=== PATIENT | female | born 1985 | race Hispanic/Latino ===

== ENCOUNTER 2017-11-04 03:02 | Inpatient (IN) | payer OTHER ==
[~2017-11-04] VITALS: Ht 170.2 cm; Wt 175.3 kg
[~2017-11-04 03:02] MED LIST: ABILIFY2 MG PO; AMLODIPINE BESY10 M1 PO; FETZIMA40 M1 PO; HYDROCHLOROTHIA25 M1 PO; KLONOPIN0.5 M1 PO; NEURONTIN300 M1 PO; PROAIR HFA8.5 GM INH; WELLBUTRIN SR150 M1 PO
--- NOTE | 2017-11-04 11:07 | Admission Core Measures ---
Acute Coronary Syndrome (CM) ACS Core Measures Acute Coronary Syndrome Diagnosis No Congestive Heart Failure (NEW) CHF Core Measures Congestive Heart Failure Diagnosis No Cerebrovascular Accident CVA Core Measures CVA/TIA Diagnosis No Venous Thromboembolism VTE Core Chery (View Protocol) VTE Risk Factors Surgery No Mechanical VTE Prophylaxis d/t N/A MechProphylax Ordered No VTE Pharm Prophylaxis d/t NA PharmProphylax ordered Problem List As ranked by this Provider includes Assessment & Plan 1. Morbid obesity 2. Asthma 3. Sleep apnea 4. Depressed 5. Hypertension 6. S/P laparoscopic sleeve gastrectomy HOME MEDS Home Med List Albuterol Sulfate (Proair Hfa) 90 MCG HFA.AER.AD 2 PUF INH Q4-6 PRN PRN ASTHMA (Reported) Amlodipine Besylate 10 MG TABLET 1 TAB PO DAILY BP (Reported) Aripiprazole (Abilify) 2 MG TABLET 1 TAB PO DAILY DEPRESSION (Reported) Bupropion HCl (Wellbutrin Sr) 150 MG TABLET.ER 1 TAB PO DAILY DEPRESSION ( Reported) Clonazepam (Klonopin) 0.5 MG TABLET 1 TAB PO DAILY DEPRESSION (Reported) Gabapentin (Neurontin) 300 MG CAPSULE 1 CAP PO DAILY DEPRESSION (Reported) Hydrochlorothiazide 25 MG TABLET 1 TAB PO DAILY FLUID PILL (Reported) Levomilnacipran Hydrochloride (Fetzima) 40 MG CAP.SA.24H 2 CAP PO DAILY DEPRESSION (Reported)
--- NOTE | 2017-11-04 11:08 | Surg Short-stay <48hrs Dis Sum ---
Visit Information Visit Dates Admission Date: 11/04/17 Discharge Date: 11/05/17 Surgical Short Stay DC Summary Admission Diagnosis: Morbid obesity, Sleep apnea, hypertension Final Diagnosis: Morbid obesity, Sleep apnea, hypertension Procedure(s): Surgery Date: 11/04/17 Name of Procedure: Robotic assisted Laparoscopic Sleeve Gastrectomy Summary/Significant Findings: Electively scheduled robotic assisted laparoscopic sleeve gastrectomy on 11/04/17 for history of morbid obesity, sleep apnea, hypertension. Started on stage 1 diet post-operatively. Upper gi study POD#1 to rule out leak and obstruction. Blood pressure monitored while hydrocholorthiazide was stopped. Lovenox teaching done prior to admission, and prescription filled pre-operatively according to her pre-operative risk assessment. Discharged to home once tolerating stage 1 bariatric diet. Condition at Discharge: stable Discharge Disposition: home or self care Discharge instructions provided to patient/family: Yes Post discharge follow-up plan: one week follow up with continue lovenox injections as directed
--- NOTE | 2017-11-04 11:11 | Operative Report ---
Operative/Inv Procedure Report Surgery Date: 11/04/17 Name of Procedure: Robotic assisted Laparoscopic Sleeve Gastrectomy Pre-Operative Diagnosis: Morbid obesity, Sleep apnea, hypertension Post-Operative Diagnosis: same Estimated Blood Loss: less than 50ml Surgeon/Towboat Operator: Jose Elias TERRELL,Zane Valentine PAC Anesthesia: general endotracheal tube, block IV Fluids: LR Implants: none Urine Output: na Drains: none Specimens: portion of stomach Complications: none Condition: stable Operative Indication: see admission h and p Operative/Procedure Note Note: After informed consent and proper identification the patient was taken the operating room placed on the operating table in supine position. Venodyne stockings were applied. She underwent a general endotracheal anesthetic. Anesthesia performed a ELENA Block. We entered the abdominal cavity using a 5 mm Stortz laparoscope through an 8 mm robotic the support through an incision just a centimeter above and lateral to the midline umbilicus. Insufflated the abdomen 14 mm associated pressure and had excellent visualization. We placed 2 ports on the left side no horizontal fashion most laterally an 8 mm robotic port in between the 2 Previous Placed ports a 12 mm trocar. On the right side to the right of the umbilicus replaced a 8 mm trocar. We placed a Too liver retractor in the upper midline to retract the left lobe of the liver. Next we docked the robot placing arm to to the trocar just to the left of the midline and placing the camera in targeting the robot once targeted we attached arms 1 3 and 4 and on one we placed a fenestrated bipolar forceps in arm 3 a vessel sealer in arm for a checkup retractor. With anesthesia to decompress his stomach with an orogastric tube and then remove it we took down the vascular attachments along the greater curvature the stomach 6 cm from the pylorus opposite the angularis all the way up to the angle of Hiss and reflected the fundus of the stomach off the left edison. We could clearly see the splenic vessels pancreas and spleen and were careful not to injure them we did not see a significant hiatal hernia. We then had anesthesia place a 40 [place]ese bougie and using this as a guide we used the robotic stapler 45 mm cartridges firing 3 green cartridges with seam guard followed by 3 blue cartridges with seam guard to completely transect the remnant stomach from the newly created sleeve were placed the remnant stomach and a 12 [employer] catch bag and pulled out through the 12 mm port removed the liver retractor the bougie all sponge and instruments. We did not place any sponges or needles within the abdominal cavity. The patient tolerated the procedure without complications were closed the skin incisions with 4-0 Monocryl subcuticular stitches and glue and she was extubated and taken to recovery room in stable condition Findings: fatty liver, no hiatal hernia Discharge Disposition: PACU
--- NOTE | 2017-11-04 11:13 | Patient Discharge Instructions ---
Discharge Instructions General Discharge Information You were seen/treated for: Morbid obesity, Sleep apnea, hypertension You had these procedures: Surgery Date: 11/04/17 Name of Procedure: Robotic assisted Laparoscopic Sleeve Gastrectomy Watch for these problems: fever>101.3, increased pain, redness/swelling/drainage, shortness of breath, chest pains, dizziness No bath, but you may shower: Yes Other wound care: skin glue covers and protects incisions. ok to shower. keep incisions clean & dry. Diet Continue normal diet: No Recommended Diet: Bariatric Additional DIET Information: weekly bariatric stage diet advancement as tolerated, as directed Activity Full Activity/No Limits: No Activity Self Limited: Yes Pounds, do NOT lift more than: 10 Other activity limits: no heavy lifting. no strenuous activity. Acute Coronary Syndrome Inclusion Criteria At DC or during hospital stay patient has or had the following: ACS DIAGNOSIS No Discharge Core Measures Meds if any: Prescribed or Continued at Discharge Meds if any: NOT Prescribed or Continued at Discharge Congestive Heart Failure Inclusion Criteria At DC or during hospital stay patient has or had the following: CHF DIAGNOSIS No Discharge Core Measures Meds if any: Prescribed or Continued at Discharge Meds if any: NOT Prescribed or Continued at Discharge Cerebrovascular accident Inclusion Criteria At DC or during hospital stay patient has or had the following: CVA/TIA Diagnosis No Discharge Core Measures Meds if any: Prescribed or Continued at Discharge Meds if any: NOT Prescribed or Continued at Discharge Venous thromboembolism Inclusion Criteria VTE Diagnosis No VTE Type NONE VTE Confirmed by (Test) NONE Discharge Core Measures - Per Current guidelines, there needs to be overlap - treatment for the first 5 days of Warfarin therapy. - If discharged on Warfarin prior to 5 days of - overlap therapy, the patient will need to be - assessed for post discharge needs including - *Post discharge parental anticoagulation - *Warfarin and/or parental anticoagulation education - *Follow up date to check INR post discharge At least 5 days overlap therapy as Inpatient No Meds if any: Prescribed or Continued at Discharge Note: Overlap Therapy is Warfarin and Anticoagulant Meds if any: NOT Prescribed or Continued at Discharge
[2017-11-04] MEDS ORDERED: HYCET 7.5 MG-3473 ML PO (11:19)
[2017-11-04] MEDS ORDERED: PROTONIX40 M3 PO (11:19)
[2017-11-04] MEDS ORDERED: LOVENOX40 MG/0.1 SC (11:19)
[2017-11-04 13:52] VITALS: BP 140/88
--- NOTE | 2017-11-04 14:49 | PN- Student ---
Subjective Subjective: Pt is complaining of 6/10 abdominal pain at this time, as well as some nausea. Reports having been nauseous for about an hour but denies any episodes of vomitus. Tolerated some of her bariatric stage 1 diet. Has not yet ambulated. Denies passing flatus or using the bathroom yet. Denies any CP, SOB, difficulty breathing, PARRY or dizziness. Objective Objective: Vitals:See EMR General: Middle aged, obese, woman, lying in bed, appears tired, NAD. Cardio: Regular rate and rhythm. S1 and S2. No murmurs rubs or gallops. Pulm: Clear breath sounds auscultated with no wheezes rhonchi or rales. Abdomen: Soft, obese, non-distended. Normoactive bowel sounds. Incisions intact. Midly tender to palpation throughout. Extremities: Calves soft and non-tender bilaterally. Results Results: Laboratory Tests 11/04/17 0632: Urine Test NEGATIVE Assessment/Plan Assessment: 32 year old F POD#0 s/p robotic assisted sleeve gastrectomy. PMH includes morbid obestity, HTN, sleep apnea, asthma, and depression. Vital signs stable and post- operative pain is being managed. Pt due to void. Plan: Continue with pain management control. Zofran as needed for nausea. Protonix for GI ppx. Simethicone for gas pain. Complete remaining doses of Cefazolin. Possible UGI in the morning if the patient is still complaining of nausea. Bariatric Stage 1 diet today. NPO after midnight in case of the need for UGI in the am. Pt still due to void. Follow up on am labs. Hep SQ for DVT ppx. Lovenox teaching for pt to be d/c home on lovenox. Continue home medications and hold HCTZ. Encourage ambulation and incentive spirometry use. Discuss w. Dr. Moctezuma and surgical PAs.
[2017-11-04 18:11] VITALS: BP 167/104
[2017-11-04 18:36] VITALS: BP 158/94
[2017-11-04 22:51] VITALS: BP 144/74
[2017-11-05 06:51] VITALS: BP 151/96
--- NOTE | 2017-11-05 07:00 | PN- Student ---
Laura Bradley 11/05/17 0652: Subjective Subjective: Pt feeling better since yesterday. Nausea has improved and pain has lessened. She denies any episodes of vomitus. Voided without difficulty. Still has not ambulated further than the bathroom. Tolerated some of her stage 1 bariatric diet last night but did not have much of an appetite. Denies any CP, SOB, difficulty breathing, PARRY or dizziness. Objective Objective: Vitals: See EMR General: Middle aged female, sitting up in bed, appears comfortable, NAD. Exam limited due to body habitus. Cardio: Regular rate and rhythm. No murmurs, rubs or gallops. Pulm: Clear breath sounds with no wheezes, rhonchi or rales that were appreciable. Abdomen: Incisions clean and intact with mild erythema. No excessive warmth or drainage noted around incisions. Abdomen is soft, round and non-distended. Faint bowel sounds heard. Mildly tender to palpation throughout. Extremities: Claves are soft and non-tender bilaterally. Results Results: Laboratory Tests 11/05/17 0640: Sodium Pending, Potassium Pending, Chloride Pending, Carbon Dioxide Pending, Anion Gap Pending, BUN Pending, Creatinine Pending, BUN/Creatinine Ratio Pending , Glucose Pending, Magnesium Pending, CBC w Diff Pending, WBC Pending, RBC Pending, Hgb Pending, Hct Pending, MCV Pending, MCH Pending, MCHC Pending, RDW Pending, Plt Count Pending, MPV Pending 11/04/17 0632: Urine Test NEGATIVE Assessment/Plan Assessment: 32 year old F POD#1 s/p robotic sleeve gastrectomy with PMH including morbid obestity, HTN, DON, ashthma, and depression. Vital signs are stable and pt is afebrile. Nausea has resolved and pt is doing well. Plan: Continue with pain management control. Zofran as needed for nausea. Protonix for GI ppx. Simethicone for gas pain. Antibiotic course has been completed. Pt still to be NPO and will discuss need for UGI this morning. IVF running. May resume Bariatric Stage 1 diet after UGI if it is performed. Follow up on am labs. Hep SQ for DVT ppx. Lovenox teaching for pt to be d/c home on lovenox. Continue home medications and hold HCTZ. Encourage ambulation and incentive spirometry use. Discuss w. Dr. Moctezuma and surgical PAs. Richard Mark 11/05/17 0736: Resident Review Statement Resident Statement: examined this patient, amended to note Other Findings: Agree with above, patient looks mildly uncomfortable, still with mild nauseous, did not take much in yesterday by mouth and has been n.p.o. since midnight. Has only gotten out of bed to walk a few steps to the bathroom once since surgery. Will proceed with upper GI this morning, n.p.o. until results of upper GI study, encourage ambulation, potential discharge this afternoon versus tomorrow, follow a.m. labs
[2017-11-05 08:33] LABS: ABSOLUTE BASOPHIL COUNT 0 /CUMM (0.0-0.2); ABSOLUTE EOSINOPHIL COUNT 0 /CUMM (0.0-0.7); ABSOLUTE GRANULOCYTE CT 10.6 /CUMM (1.4-6.5); ABSOLUTE LYMPH COUNT 1.3 /CUMM (1.2-3.4); ABSOLUTE MONOCYTE COUNT 0.5 /CUMM (0.10-0.60); BASOPHIL % 0.1 % (0.0-2.0); EOSINOPHIL % 0 % (0-5); GRANULOCYTE % 85.7 % (42.2-75.2); HEMATOCRIT 38.3 % (37-47); MEAN CORPUSCULAR HGB 31.4 PG (27.0-31.0); MEAN CORPUSCULAR VOLUME 92.5 FL (81.0-99.0); MEAN PLATELET VOLUME 8.9 FL (7.4-10.4); PLATELET COUNT 288 /CUMM (130-400); RBC DISTRIBUTION WIDTH 13.4 % (11.5-14.5); RED BLOOD CELL CT 4.13 /CUMM (4.20-5.40); WHITE BLOOD CELL COUNT 12.3 /CUMM (4.8-10.8)
[2017-11-05 11:49] VITALS: BP 132/84
--- NOTE | 2017-11-05 11:52 | RADIOLOGY REPORT ---
EXAMINATION: FLUOROSCOPY UPPER GI WITH GASTROGRAFIN WITH KUB CLINICAL INFORMATION: 1 day status post gastric sleeve procedure. Postoperative evaluation. Rule out leak and obstruction. COMPARISON: None. TECHNIQUE: A preliminary dry sand molder view of the abdomen was performed. A limited Gastrografin upper GI study was performed using 30 ml of Gastroview with the patient in the semiupright and recumbent positions. 4 cine fluoroscopy runs were acquired. FINDINGS: The preliminary maxillary dry sand molder view is suboptimal due to patient body habitus. Postoperative changes are noted in the left upper abdomen. There are loops of large bowel overlying the left upper quadrant. Elsewhere, bowel gas pattern is nonspecific. There are multilevel degenerative changes in the visualized thoracic and lumbar spine. The patient initiated the swallowing mechanism normally. No aspiration was demonstrated. Esophageal distensibility and motility is normal. The GE junction is located below the level of the diaphragm and no GE reflux seen. The remnant gastric pouch is normal with no abnormal distention or contrast leak seen. There is prompt emptying of contrast into the duodenum, which is unremarkable in appearance. FLUOROSCOPY TIME: 36 seconds. IMPRESSION: 1. Post gastrectomy evaluation with no evidence of contrast leak or gastric outlet obstruction.
[2017-11-05] MEDS ORDERED: HYCET 7.5 MG-3473 ML PO (13:41)
[2017-11-05] MEDS ORDERED: PROTONIX40 M3 PO (13:41)
== END 2017-11-05 14:50 | DRG 403 ==
LOC: SDA 03:02 → ENRESERV 12:01 → EDBEDREQ 12:01 → ENTRNSPT 12:54 → EDTRNSPT 13:00 → EDTRNSPTSTS 13:11 → 2NB 13:20 → CMPTRNSPT 13:42 → ENPENDDIS 11-05 13:41 → ENTRNSPT 11-05 14:29 → 2NB 11-05 14:50 → CMPTRNSPT 11-05 15:16
PROVIDERS: Physician Assistant
PROC: 0DB64Z3 Excision of Stomach, Percutaneous Endoscopic Approach, Vertical (ICD-10-PCS; principal; 2017-11-04)
PROC: 8E0W4CZ Robotic Assisted Procedure of Trunk Region, Percutaneous Endoscopic Approach (ICD-10-PCS; principal; 2017-11-04)
PROC: 3E0T3BZ Introduction of Anesthetic Agent into Peripheral Nerves and Plexi, Percutaneous Approach (ICD-10-PCS; 2017-11-04)
DX: E66.01 Morbid (severe) obesity due to excess calories (principal); Z68.44 Body mass index [BMI] 60.0-69.9, adult; I10 Essential (primary) hypertension; G47.33 Obstructive sleep apnea (adult) (pediatric); K76.0 Fatty (change of) liver, not elsewhere classified; F32.9 Major depressive disorder, single episode, unspecified; J45.909 Unspecified asthma, uncomplicated
CPT/HCPCS: 2NBSP; 36415; 71046; 74240; 81025; 82436; J0131; J0690; J1100; J1644; J2405; J3490; J7042